=== PATIENT | female | born 1945 | race Caucasian/White ===

== ENCOUNTER → 2016-12-24 | Day surgery (SDC) | payer MEDICARE, BC ==
[~2016-12-24] MED LIST: ACETAMINOPHEN PO; ALPRAZOLAM; AMITRYPTYLINE PO; ASPIRIN; BACTRIM DS TABL1 TAB; DIAZEPAM; HYDROCHLOROTH12.5 M1 PO; INDERAL LA; LEVAQUIN; LEVAQUIN PO; NEXIUM; PANTOPRAZOLE SO40 MG PO; PROPRANOLOL; PROS; PYRIDIUM
--- NOTE | ~2016-12-24 | OR ---
Unit #: [id number] #: [id number] Patient: ARMANDO ISAAC [id number] [address] [id number] [id number] MR#: [id number] NAME: ARMANDO ISAAC. ROOM: Date of Procedure: 12/24/2016 Admission Date: 12/24/2016 Surgeon: Cristobal Doherty M.D. : 1945 Attending Physician: Cristobal Doherty M.D. Primary Care Physician: Rj Hodges M.D. OPERATIVE REPORT PRIMARY CARE PHYSICIAN Rj Hodges M.D. PREOPERATIVE DIAGNOSIS Dyspepsia, dysphagia, and epigastric pain; in addition, the patient needs colorectal cancer screening. PROCEDURES PERFORMED Upper gastrointestinal endoscopy and biopsy as well as colonoscopy with polypectomy. POSTOPERATIVE DIAGNOSES For upper endoscopy: 1. The patient had moderately severe distal ulcerative esophagitis. 2. Mild antral gastritis in the form of focal erythema and erythematous streaks. 3. Rest of the examination up to third part of the duodenum was normal. Biopsy was obtained from the antrum for CLOtest. For colonoscopy: 1. A single sessile polyp in the proximal transverse colon. This was about a centimeter in size. It was removed using snare polypectomy. 2. Scant sigmoid and descending colon diverticulosis. 3. Medium-sized external hemorrhoids. 4. Rest of the examination up to cecum and terminal ileum was normal. The quality of prep was excellent. RECOMMENDATIONS 1. Follow up results of polyp histology. 2. The patient will be started on pantoprazole 40 mg p.o. daily. 3. She will be followed up in the office in 3 to 4 months' time. SEDATION USED MAC. DESCRIPTION OF PROCEDURE Following detailed explanation of the potential risks and complications of an upper endoscopy and a colonoscopy, namely perforation, bleeding, complication related to sedation, the patient was brought to GI lab and laid in the left lateral decubitus position. Lubricated tip of the Olympus video upper endoscope was passed through the bite block into the proximal esophagus under direct vision. The entire esophageal mucosa was examined and the patient was noted to have moderately severe distal Unit #: [id number] #: [id number] Patient: ARMANDO ISAAC ulcerative esophagitis with anna ulcers in the distal esophagus. There was also presence of an early nonobstructing stricture. The scope was then advanced in the gastric cavity and the latter was insufflated. Mucosa of the fundus, body, and antrum examined and the patient was noted to have mild prepyloric antral erythema in the form of erythematous streaks. Pylorus was intubated with visualization of the normal duodenal bulb and second and third part of the duodenum. Upon withdrawal and retroflexion, incisura, cardia, and greater curve were examined and no additional findings were noted. A biopsy was obtained from the antrum for CLOtest. The scope was then withdrawn in the distal esophagus. The entire esophageal mucosa was examined all the way up to pharynx, no additional findings noted. The examination table was then turned by 180 degrees and the patient was positioned for a colonoscopy. A digital rectal examination was performed, which was normal. Lubricated tip of the Olympus video colonoscope was inserted through the anus and advanced under direct vision. The scope was advanced and passed up to sigmoid into descending colon. Scant diverticula were noted in this area, which were really small. The scope was then navigated all the way up to cecum with visualization of the ileocecal valve and the appendiceal orifice. Preparation was excellent with good visualization and photodocumentation was obtained. Last few inches of terminal ileum also visualized after intubation of the ileocecal valve and appeared normal. Successive segments of the colonic mucosa were examined upon withdrawal. A single sessile polyp was noted in the proximal transverse colon. This was about a centimeter in size. It was removed using snare polypectomy. The polyp was retrieved and sent for histology. No additional polyps noted. Other than the scant diverticula, the patient was also noted to have small to medium-sized external hemorrhoids. The scope was then withdrawn. The patient returned to the recovery area. She tolerated the procedure without any postprocedure complications. Dictated by... Donaldo Dixon TD: 12/24/2016 07:47 JOB #: [id number] OPERATIVE REPORT Page 1 of 1 X Cristobal Doherty MD X PROCEDURE OPERATIVE NOTE
== END | disposition home or self-care (01) ==
LOC: COPS 06:09
DX: Z12.11 Encounter for screening for malignant neoplasm of colon (principal); D12.3 Benign neoplasm of transverse colon; K22.10 Ulcer of esophagus without bleeding; K29.70 Gastritis, unspecified, without bleeding; K57.30 Diverticulosis of large intestine without perforation or abscess without bleeding; K64.4 Residual hemorrhoidal skin tags; I10 Essential (primary) hypertension; M19.90 Unspecified osteoarthritis, unspecified site; Z88.0 Allergy status to penicillin; Z88.8 Allergy status to other drugs, medicaments and biological substances; Z79.899 Other long term (current) drug therapy; Z90.49 Acquired absence of other specified parts of digestive tract; Z98.890 Other specified postprocedural states
CPT/HCPCS: 87077; 88305